=== PATIENT | male | born 1940 | race Caucasian/White ===

== ENCOUNTER 2017-07-15 06:56 | Day surgery (SDC) | payer MEDICARE, BC ==
[~2017-07-15] VITALS: Ht 170.2 cm; Wt 86.2 kg
[~2017-07-15 06:56] MED LIST: AMOXICILLIN500 MG PO; ASPIRIN ADULT L81 MG PO; GENTLE IRON PO; HYDROCHLOROT25 MG PO; LEVOTHYROXIN75 MC1 PO; LOSARTAN POT50 MG PO; NIGHTTIME SLEEP25 MG PO; NORVASC10 M1 PO; OMEPRAZOLE20 M2 PO; STOOL SOFTE1 PO; SYSTANE BAL OU; [UNRECOGNIZED DRUG - OTHER]
[2017-07-15 09:13] VITALS: BP 107/64
== END 2017-07-15 09:24 | disposition home or self-care (01) ==
LOC: ENDO 06:56 → ORM 11:00 → ENDO 11:00
PROVIDERS: ATTEND Internal Medicine Gastroenterology
PROC: 0DBP8ZX Excision of Rectum, Via Natural or Artificial Opening Endoscopic, Diagnostic (ICD-10-PCS; principal; 2017-07-15)
DX: K57.30 Diverticulosis of large intestine without perforation or abscess without bleeding (principal); K64.8 Other hemorrhoids; K62.1 Rectal polyp; K64.4 Residual hemorrhoidal skin tags; I10 Essential (primary) hypertension; E03.9 Hypothyroidism, unspecified; Z86.010 Personal history of colon polyps

== ENCOUNTER 2017-09-09 08:30 | Day surgery (SDC) | payer MEDICARE ==
[~2017-09-09] VITALS: Ht 170.2 cm; Wt 84.8 kg
[2017-09-09 11:26] VITALS: BP 126/70
== END 2017-09-09 11:37 | disposition home or self-care (01) ==
LOC: ENDO 08:30 → ORM 11:30 → ENDO 11:30
PROVIDERS: ATTEND Internal Medicine Gastroenterology
PROC: 0DB58ZX Excision of Esophagus, Via Natural or Artificial Opening Endoscopic, Diagnostic (ICD-10-PCS; principal; 2017-09-09)
PROC: 0DB68ZX Excision of Stomach, Via Natural or Artificial Opening Endoscopic, Diagnostic (ICD-10-PCS; 2017-09-09)
PROC: 0D758ZZ Dilation of Esophagus, Via Natural or Artificial Opening Endoscopic (ICD-10-PCS; 2017-09-09)
DX: K21.0 Gastro-esophageal reflux disease with esophagitis (principal); K22.2 Esophageal obstruction; K29.70 Gastritis, unspecified, without bleeding; K31.7 Polyp of stomach and duodenum; K64.8 Other hemorrhoids; I10 Essential (primary) hypertension; E03.9 Hypothyroidism, unspecified; Z86.010 Personal history of colon polyps